=== PATIENT | male | born 1965 | race Caucasian/White ===

== ENCOUNTER 2019-02-10 13:39 | Emergency (ER) | payer OTHER ==
[~2019-02-10] VITALS: Ht 165.1 cm; Wt 79.8 kg
--- NOTE | 2019-02-10 13:53 | NUR ---
PT MATTHEW 78 FROM WORK C/O FLU LIKE SYMPTOMS FOR 4 DAYS. PT AAOX4, BREATHING EVEN AND UNLABORED, AMBULATORY. PT CONNECTED TO THE MONITOR WILL CONTINUE TO MONITOR.
[2019-02-10 14:54] LABS: BASOPHILS % (AUTO) 0.6 % (0.0-2.0); EOSINOPHILS % (AUTO) 1.9 % (0.0-6.0); HEMATOCRIT 38 % (39-51); HEMOGLOBIN 13.1 g/dL (13.5-17.5); LYMPHOCYTES # (AUTO) 2.1 /CMM (0.8-4.8); MEAN CORPUSCULAR HGB CONC 34 g/dl (31.0-36.0); MEAN CORPUSCULAR VOLUME 93 fL (80-96); MONOCYTES # (AUTO) 0.8 /CMM (0.1-1.30); NEUTROPHILS # (AUTO) 5.3 /CMM (1.8-8.9); NEUTROPHILS % (AUTO) 63.5 % (43.0-81.0); PLATELET COUNT (AUTO) 218 /CMM (150-450); WHITE BLOOD COUNT (AUTO) 8.4 K/uL (4.3-11.0)
[2019-02-10] MEDS ORDERED: methylPREDNISolone SOD SUCC 125 MG/2ML VIAL ONE (14:55)
[2019-02-10] MEDS ORDERED: ALBUTEROL FS 2.5 MG/3 ML VIAL.NEB NEB ONE ×2 (15:00→16:00)
[2019-02-10] MEDS ORDERED: IPRATROPIUM NEB FS 0.5 MG/2.5 ML AMPUL.NEB NEB ONE (15:00)
[2019-02-10] MEDS ORDERED: IV NS 0.9% 500 ML BAG IV ONE (15:00)
[2019-02-10] MEDS ORDERED: methylPREDNISolone SOD SUCC 125 MG/2ML VIAL IV ONE (15:00)
[2019-02-10 15:03] LABS: CALCIUM, SERUM 8.8 mg/dL (8.5-10.1); CARBON DIOXIDE 28 mmol/L (21-32); CHLORIDE 100 mmol/L (98-107); GLUCOSE 94 mg/dL (74-106); POTASSIUM 3.6 mmol/L (3.5-5.1); SODIUM SERUM 136 mmol/L (136-145); UREA NITROGEN, BLOOD 15 mg/dL (7-18)
[2019-02-10 15:12] LABS: ALBUMIN 3.8 g/dL (3.4-5.0); BILIRUBIN,DIRECT 0.1 mg/dL (0.0-0.2); BILIRUBIN,TOTAL 0.6 mg/dL (0.2-1.0); TOTAL PROTEIN, SERUM 7.4 g/dL (6.4-8.2)
[2019-02-10 15:23] LABS: B-TYPE NATRIURETIC PEPTIDE 243 PG/ML (0-125)
--- NOTE | 2019-02-10 15:30 | NUR ---
ADDENDUM: Intravenous End Time Documentation: Normal saline 500 cc (IV-WO): start time: 1530 ; end time: 1600 : IV site: RT. AC # 18 Port # 1
[2019-02-10] MEDS ORDERED: Magnesium 1GM/D5W 100ML PREMIX 200 ML IV ONE ×2 (16:01→16:08)
[2019-02-10] MEDS ORDERED: ALBUTEROL FS 2.5 MG/3 ML VIAL.NEB ONE (16:04)
[2019-02-10] MEDS ORDERED: AZITHROMYCIN 250 MG TABLET PO ONE (18:00)
--- NOTE | 2019-02-10 18:02 | NUR ---
GAVE MOVESHEET TO ADMITTING TO START REGAL AUTHORIZATION
[2019-02-10] MEDS ORDERED: AZITHROMYCIN 250 MG TABLET ONE (18:15)
[2019-02-10] MEDS ORDERED: POTA8TAB8 PO (18:17)
[2019-02-10] MEDS ORDERED: FURO40TA5 PO (18:17)
[2019-02-10] MEDS ORDERED: FAMO20TA8 PO (18:17)
[2019-02-10] MEDS ORDERED: BENA20TA9 PO (18:17)
[2019-02-10] MEDS ORDERED: CARV12.52 PO (18:17)
[2019-02-10] MEDS ORDERED: ALBU8.5H8 IH (18:18)
[2019-02-10] MEDS ORDERED: IPRA12.9 IH (18:18)
--- NOTE | 2019-02-10 18:35 | NUR ---
PT CAPITATED TO [facility], AWAITING PEER TO PEER CALL BACK
[2019-02-10 20:09] VITALS: BP 144/81
== END 2019-02-10 20:10 | disposition left against medical advice (07) ==
LOC: ER 13:45
DX: J20.9 Acute bronchitis, unspecified (principal); F17.200 Nicotine dependence, unspecified, uncomplicated; J44.9 Chronic obstructive pulmonary disease, unspecified; I11.0 Hypertensive heart disease with heart failure; I50.9 Heart failure, unspecified; Z79.899 Other long term (current) drug therapy
CPT/HCPCS: 36415; 71045; 80048; 80076; 83880; 84484; 85025; 87804 ×2; 93005; 94640 ×2; 96365; 96366; 96375; 99284; 99406; J2930; J3475; J7040